=== PATIENT | male | born 1955 | race Caucasian/White ===

== ENCOUNTER 2020-05-12 15:17 | Outpatient (CLI) | payer BC ==
--- NOTE | 2020-05-12 16:51 | RAD ---
SACRUM AND COCCYX 3 VIEWS: Date: 05/12/2020 HISTORY: Coccyx pain. FINDINGS: Sacrum and coccyx appear unremarkable. SI joints appear symmetric with mild degenerative sclerosis se en bilaterally. Visualized hips are unremarkable. IMPRESSION: No acute findings. POS: OFF
== END 2020-05-12 15:18 | disposition home or self-care (01) ==
LOC: NAV RAD 15:17
PROVIDERS: ATTEND Family Medicine
DX: M53.3 Sacrococcygeal disorders, not elsewhere classified (principal)
CPT/HCPCS: 72220

== ENCOUNTER 2023-06-10 09:56 | Outpatient (CLI) | payer MEDICARE, OTHER | END 2023-06-10 09:57 | disposition home or self-care (01) | LOC: NAV CT 09:56 | PROVIDERS: ATTEND Family Medicine | DX: K40.90 Unilateral inguinal hernia, without obstruction or gangrene, not specified as recurrent (principal); K57.30 Diverticulosis of large intestine without perforation or abscess without bleeding; I99.8 Other disorder of circulatory system | CPT/HCPCS: 74176 ==